=== PATIENT | female | born 1970 | race Caucasian/White ===

== ENCOUNTER → 2025-05-20 10:34 | Outpatient (BNVA) | payer OTHER, SELFPAY | PROVIDERS: Visit Provider Internal Medicine Rheumatology | DX: M54.2 Cervicalgia (principal); M54.9 Dorsalgia, unspecified; G89.29 Other chronic pain; M25.59 Pain in other specified joint; M81.0 Age-related osteoporosis without current pathological fracture; M41.9 Scoliosis, unspecified; Z98.1 Arthrodesis status; M43.22 Fusion of spine, cervical region | CPT/HCPCS: 36415; 72040; 72072; 72100; 80076; 82306; 82565; 83520; 85025; 85651; 86140; 86160; 86162; 86200; 86235; 86255; 86376; 86431; 86480; 86704; 86803; 87340 ==

== ENCOUNTER 2025-05-30 15:29 | Outpatient (CLI) | payer OTHER, SELFPAY ==
--- NOTE | 2025-05-30 15:30 | US_ITS ---
WS: [id number] INDICATION: Enlarged lymph nodes TECHNIQUE: Ultrasound soft tissue bilateral neck FINDINGS: Ultrasound soft tissue bilateral neck in the areas of concern. No suspicious findings in the areas of concern bilateral neck. No cystic or solid lesions. No visualized lymphadenopathy. If persistent concern recommend contrast-enhanced CT neck US/US soft tissue head neck [id number] IMPRESSION: See above
== END 2025-05-30 15:30 | disposition home or self-care (01) ==
LOC: RAD 15:31
PROVIDERS: PCP Family Medicine; Visit Provider Internal Medicine Rheumatology
DX: R59.9 Enlarged lymph nodes, unspecified (principal)
CPT/HCPCS: 76536